=== PATIENT | male | born 1955 | race Caucasian/White ===

== ENCOUNTER 2022-09-05 09:00 | Outpatient (RCR) | payer BC, SELFPAY | END 2022-09-05 09:56 | disposition home or self-care (01) | LOC: HO.PT 09:00 | PROVIDERS: PCP Internal Medicine; Visit Provider Nurse Practitioner Family | DX: K59.00 Constipation, unspecified (principal); M99.05 Segmental and somatic dysfunction of pelvic region | CPT/HCPCS: 97110; 97112; 97140; 97161 ==